=== PATIENT | female | born 1960 | race Caucasian/White ===

== ENCOUNTER → 2020-09-09 | Outpatient (CLI) | payer BC ==
--- NOTE | 2020-09-10 14:02 | Diagnostic Imaging Report ---
INDICATION: Digital screening 2-D and 3-D with CAD compared 08/2016 and 08/2015 FINDINGS: Scattered fibroglandular densities in the breast are present with no mass or architectural distortion or spiculated lesion. Skin and nipples and axilla within normal limits. There are no suspicious calcifications. IMPRESSION: Stable negative mammogram. BI-RADS Category 1 ACR BI-RADS Category 1: Negative. Result letter will be mailed to the patient. Note: At least 10% of breast cancer is not imaged by mammography. Dictated by: Dictated on workstation # [id number]
== END ==
LOC: EDBD 09-06 07:30 → RAD 07:45
PROVIDERS: ATTEND Obstetrics & Gynecology
DX: Z12.31 Encounter for screening mammogram for malignant neoplasm of breast (principal)
CPT/HCPCS: 77063; 77067